=== PATIENT | male | born 1965 | race Caucasian/White ===

== ENCOUNTER 2016-11-10 11:24 | Day surgery (SDC) | payer OTHER ==
[~2016-11-10] VITALS: Ht 175.3 cm; Wt 89.3 kg
[2016-11-10 11:52] VITALS: Ht 175.3 cm; Wt 89.3 kg
[2016-11-10] MEDS ORDERED: OMEP20CA16 PO (12:02)
[2016-11-10] MEDS ORDERED: BENA40TA41 PO (12:02)
[2016-11-10] MEDS ORDERED: AMLO-147 PO (12:02)
[2016-11-10] MEDS ORDERED: HYDR12.58 PO (12:02)
[2016-11-10] MEDS ORDERED: ASPI-664 PO (12:02)
[2016-11-10] MEDS ORDERED: ATOR40TA68 PO (12:02)
[2016-11-10] MEDS ORDERED: LANT3I SC (12:02)
[2016-11-10] MEDS ORDERED: PROPOFOL 20 ML ONE (12:42)
[2016-11-10] MEDS ORDERED: LIDOCAINE 2% (SDV) 5 ML INJ ONE (12:42)
[2016-11-10] MEDS ORDERED: MIDAZOLAM 1 MG/ML 2 ML INJ ONE (12:43)
[2016-11-10 13:35] VITALS: BP 109/67; PULSE 73; RESP 14
[2016-11-10 14:05] VITALS: BP 119/68; PULSE 82; RESP 18
--- NOTE | 2016-11-11 03:34 | GILP ---
DATE OF PROCEDURE: 11/10/2016 PROCEDURE PERFORMED: 1. Esophagogastroduodenoscopy and biopsy. 2. Colonoscopy and biopsy. SURGEON: Gil Feliz MD. PREOPERATIVE DIAGNOSES: 1. Gastroesophageal reflux disease. 2. Screening colonoscopy. POSTOPERATIVE DIAGNOSES: 1. Gastroesophageal reflux disease. 2. Gastritis with erosions. 3. Gastric mucosal biopsies were taken for Helicobacter pylori test. 4. Colonoscopy all the way to the cecum. 5. Small transverse colon polyp was removed using the biopsy forceps. 6. Internal hemorrhoids. INDICATION: Mr. Levi Vance is a 51-year-old male patient who had chronic heartburn not responding to therapy. He also needed a screening colonoscopy. The procedures and possible complications were well explained to the patient. He understood and consented to the procedures. DESCRIPTION OF PROCEDURE: Under influence of anesthesia, the gastroscope was carefully introduced into the esophagus. Under direct vision, it was advanced to the stomach into the pylorus into the duodenal bulb, and descending duodenum. Findings: Esophagus: The patient had gastroesophageal reflux disease. Stomach: He had gastritis with erosions. Gastric mucosal biopsies were taken for Helicobacter pylori test. Duodenum was normal. The colonoscope was carefully introduced in the rectum. Under direct vision, it was advanced all the way to the cecum. Findings: There was a small transverse colon polyp, and it was removed using the biopsy forceps. He had internal hemorrhoids. He tolerated the procedures very well. There were no complication from the procedures. At the end of procedures, he was awake with stable vital signs, and he was discharged home in care of his family. IMPRESSION: Please see postop diagnoses. PLAN: 1. Continue omeprazole. 2. Add Zantac 300 mg p.o. q.h.s. 3. Await histopathology reports. 4. Next screening colonoscopy in 10 years. Dictated By: MD ALIN Carlin/izzy/david /Document#: [id number]
== END 2016-11-10 14:58 | disposition home or self-care (01) ==
LOC: GIL 11:24
PROVIDERS: ATTEND Internal Medicine Gastroenterology
DX: Z12.11 Encounter for screening for malignant neoplasm of colon (principal); K21.9 Gastro-esophageal reflux disease without esophagitis; K29.60 Other gastritis without bleeding; K64.8 Other hemorrhoids; I10 Essential (primary) hypertension; E11.9 Type 2 diabetes mellitus without complications; E78.5 Hyperlipidemia, unspecified; E66.9 Obesity, unspecified; Z68.29 Body mass index [BMI] 29.0-29.9, adult
CPT/HCPCS: 43239; 45380; 82962; 87081; 88305; J2250; Z7610

== ENCOUNTER → 2017-04-29 | Outpatient (CLI) | END | disposition home or self-care (01) ==